=== PATIENT | male | born 1975 | race Caucasian/White ===

== ENCOUNTER 2016-12-30 06:53 | Emergency (ER) | payer SELFPAY ==
[2016-12-30 07:02] VITALS: BP 104/80; BMI 19.2
--- NOTE | 2016-12-30 07:08 | DR.GENAD ---
HPI - PCP Primary Care Physician: Jeremy - HPI Comment HPI Comment: WISH TO GO TO REHAB. - Complaint/Symptoms Chief Complaint Doctors Comments: ALCHOL DEPENDENCY Chief Complaint:: "I need help to quit drinking. I went to [place] last night for help and they said that my alcohol level had to be higher. So then I went out and bought a 5th so that my levels would be higher. I am withdrawing now and need help." - Nurses notes reviewed Nurses Notes Review: Yes - Source History Provided: Patient - Mode of Arrival Mode of Arrival: Ambulatory - Timing Onset of Chief Complaint: 12/30/16 Came on: Suddenly - Duration Duration: Constant Duration: Days - Severity Severity: Moderate <DOUGLAS PINEDA - Last Filed: 01/03/17 11:48> PMH - PMH Past Medical History: Yes Past Medical History: Anxiety, Kidney Stones, PUD Past Surgical History: Yes Surgical History: Ortho Surgery Past Surgical History Comment: Shoulder surgery - Family History History of Family Medical Conditions: Yes Family Medical History: Diabetes Mellitus, [place], Coronary Artery Disease, Heart Failure, Hypertension - Social History Does patient currently use any type of tobacco product: Yes Have you used tobacco products in the last 12 months: Yes Type of Tobacco Use: Cigarettes Does any household member use tobacco: Yes Alcohol Use: Heavy Do you use any recreational Drugs:: No Lives With: Spouse Lives Where: Home - infectious screening In the last 2 months have you had wt loss of >10#?: NO Have you had fever, night sweats or hemotysis?: No Have you traveled outside the country in the last 6 months?: No Isolation: Standard <DOUGLAS PINEDA - Last Filed: 01/03/17 11:48> ROS - Review of Systems Constitutional: No Symptoms Reported Eyes: No Symptoms Reported ENTM: No Symptoms Reported Respiratoy: No Symptoms Reported Cardiovascular: No Symptoms Reported Gastrointestinal/Abdominal: No Symptoms Reported Genitourinary: No Symptoms Reported Neurological: No Symptoms Reported Musculoskeletal: No Symptoms Reported Integumentary: No Symptoms Reported Endocrine: No Symptoms Reported All Other Systems: Reviewed and Negative <DOUGLAS PINEDA - Last Filed: 01/03/17 11:48> PE - General Limitations: No Limitations General Appearance: Alert - Head Head Exam: Normal Inspection - Eyes Eye exam: Normal Appearance - ENT ENT Exam: Normal External Ear Exam External Ear Exam: Normal External Inspection TM/Canal Exam: Bilateral Normal Nose Exam: Normal Nose Exam Mouth Exam: Normal Inspection Throat Exam: Normal Inspection - Neck Neck Exam: Normal Inspection - Chest Chest Inspection: Symmetric Chest Wall Rise - Respiratory Respiratory Exam: Normal Lung Sounds Bilat Respiratory Exam: Bilateral Clear to Auscultation - Cardiovascular Cardiovascular Exam: Regular Rate, Normal Rhythm, Normal Heart Sounds - Abdominal Exam Abdominal Exam: Normal Bowel Sounds, Soft. negative: Tenderness - Extremities Extremities Exam: Normal Inspection - Back Back Exam: Normal Inspection - Neurologic Neurological Exam: Alert, Oriented X3, CN II-XII Intact - Psychiatric Psychiatric Exam: Normal Affect, Normal Mood - Skin Skin Exam: Normal Color <DOUGLAS PINEDA - Last Filed: 01/03/17 11:48> - Vital Signs Vitals: Temperature 97.7 F Pulse Rate 97 Respiratory Rate 18 Blood Pressure 104/80 O2 Sat by Pulse Oximetry 95 MDM - Differential Diagnosis Differential Diagnosis: ALCOHOL DEPENDENCY, REHAB REQUEST <DOUGLAS PINEDA - Last Filed: 01/03/17 11:48> Course - Treatment Treatment: Patient states that he is going to stop drinking alcohol. He will be following up with Dr Alston for treatment. He was seen by Dr Alston in the past be relasped.He reporots that he comes a long hisotry of alcohol abuse in his family and is determined to stop. Will give him a librium, thiamine and B complex pending his appointment with Dr Alston - Reevaluation 1st: Improved <SIRI ZURITA - Last Filed: 12/30/16 08:55> ROR - Labs Reviewed Laboratory Results Reviewed?: Yes (Alcohol 115mg/dl, THC) Result Diagrams: 12/30/16 07:20 12/30/16 07:20 <SIRI ZURITA - Last Filed: 12/30/16 08:55> - Labs Reviewed Result Diagrams: 12/30/16 07:20 12/30/16 07:20 <DOUGLAS PINEDA - Last Filed: 01/03/17 11:48> - Labs Reviewed Laboratory: 12/30/16 07:27 Urine,Clean Catch Urine Culture - Final WBC 9.3 X10^3/uL (3.6-10.0) 12/30/16 07:20 RBC 4.22 X10^6/uL (4.7-6.0) L 12/30/16 07:20 Hgb 13.8 g/dL (13.5-18.0) 12/30/16 07:20 Hct 40.0 % (42.0-54.0) L 12/30/16 07:20 MCV 94.9 fL (80.0-100.0) 12/30/16 07:20 MCH 32.6 pg (27.0-34.0) 12/30/16 07:20 MCHC 34.4 g/dL (33.0-35.0) 12/30/16 07:20 RDW 15.1 % (11.6-16.5) 12/30/16 07:20 Plt Count 223 X10^3/uL (150.0-450.0) 12/30/16 07:20 MPV 6.9 fL (7.4-11.0) L 12/30/16 07:20 Neut % 73.4 % (42.0-75.0) 12/30/16 07:20 Lymph % 18.1 % (21.0-51.0) L 12/30/16 07:20 [place] % 6.6 % (0.0-13.0) 12/30/16 07:20 Eos % 1.1 % (0.9-2.9) 12/30/16 07:20 Baso % 0.8 % (0.2-1.0) 12/30/16 07:20 Neut # 6.8 x10^3/uL (2.2-4.8) H 12/30/16 07:20 Lymph # 1.7 X10^3/uL (1.3-2.9) 12/30/16 07:20 [place] # 0.6 x10^3/uL (0.3-0.8) 12/30/16 07:20 Eos # 0.1 x10^3/uL (0.0-0.2) 12/30/16 07:20 Baso # 0.1 X10^3/uL (0.0-0.1) 12/30/16 07:20 Absolute Nucleated RBC 0.1 /100WBC 12/30/16 07:20 Sodium 142 mmol/L (136-145) 12/30/16 07:20 Corrected Sodium 142 mmol/L (136-145) 12/30/16 07:20 Potassium 3.5 mmol/L (3.5-5.1) 12/30/16 07:20 Chloride 108 mmol/L (98-107) H 12/30/16 07:20 Carbon Dioxide 23.8 mmol/L (21-32) 12/30/16 07:20 BUN 8 mg/dL (7-18) 12/30/16 07:20 Creatinine 1.12 mg/dL (0.70-1.30) 12/30/16 07:20 Est GFR (MDRD) Af Amer > 60 (>60) 12/30/16 07:20 Est GFR (MDRD) Non-Af > 60 (>60) 12/30/16 07:20 Glucose 112 mg/dL (65-99) H 12/30/16 07:20 Calcium 8.7 mg/dL (8.5-10.1) 12/30/16 07:20 Corrected Calcium TNP 12/30/16 07:20 Total Bilirubin 0.90 mg/dL (0.2-1.0) 12/30/16 07:20 AST 32 Units/L (15-37) 12/30/16 07:20 ALT 24 Units/L (12-78) 12/30/16 07:20 Alkaline Phosphatase 115 Units/L (46-116) 12/30/16 07:20 Total Protein 7.5 g/dL (6.4-8.2) 12/30/16 07:20 Albumin 3.4 g/dL (3.4-5.0) 12/30/16 07:20 Globulin 4.1 g/dL (2.5-4.5) 12/30/16 07:20 Albumin/Globulin Ratio 0.8 Ratio (1.1-2.1) L 12/30/16 07:20 Specimen Type Clean catch urine 12/30/16 07:27 Urine Color Yellow (YELLOW) 12/30/16 07:27 Urine Appearance Hazy (CLEAR) 12/30/16 07:27 Urine pH 5.0 (5.0 - 8.0) 12/30/16 07:27 Ur Specific [place] 1.030 (1.000-1.030) 12/30/16 07:27 Urine Protein 2+ (NEGATIVE) 12/30/16 07:27 Urine Glucose (UA) Negative (NEGATIVE) 12/30/16 07:27 Urine Ketones Negative (NEGATIVE) 12/30/16 07:27 Urine Occult Blood 1+ (NEGATIVE) 12/30/16 07:27 Urine Nitrite Negative (NEGATIVE) 12/30/16 07:27 Urine Bilirubin Negative (NEGATIVE) 12/30/16 07:27 Urine Urobilinogen 1+ (NORMAL) 12/30/16 07:27 Ur Leukocyte Esterase Negative (NEGATIVE) 12/30/16 07:27 Urine RBC 0-3 /HPF (NEGATIVE) 12/30/16 07:27 Urine WBC 0-3 /HPF (NEGATIVE) 12/30/16 07:27 Ur Squamous Epith Cells Few /HPF (NEGATIVE) 12/30/16 07:27 Urine Bacteria 1+ /HPF (NEGATIVE) 12/30/16 07:27 Ur Culture Indicated? Yes/culture set up 12/30/16 07:27 Salicylates < 2.8 mg/dL (2.8-20) L 12/30/16 07:20 Urine Opiates Screen Negative (NEG=<300) 12/30/16 07:23 Urine Methadone Screen Negative (NEG=<300) 12/30/16 07:23 Acetaminophen 0.0 ug/mL (10-30) L 12/30/16 07:20 Ur Barbiturates Screen Negative (NEG=<200) 12/30/16 07:23 Ur Phencyclidine Scrn Negative (NEG=<25) 12/30/16 07:23 Ur Amphetamines Screen Negative (NEG=<1000) 12/30/16 07:23 U Benzodiazepines Scrn Negative (NEG=<200) 12/30/16 07:23 Urine Cocaine Screen Negative (NEG=<300) 12/30/16 07:23 U Marijuana (THC) Screen Positive (NEG=<50) A 12/30/16 07:23 Ethyl Alcohol mg/dL 115 mg/dL (0-19.9) H 12/30/16 07:20 <SIRI ZURITA - Last Filed: 12/30/16 08:55> <DOUGLAS PINEDA - Last Filed: 01/03/17 11:48> - Diagnosis Discharge Problem: Alcohol use disorder - Discharge Plan Disposition: 01 HOME, SELF-CARE Condition: Stable Prescriptions: B-Complex with Vitamin C [B-Complex Plus Vitamin C] 1 each PO DAILY #30 tablet Chlordiazepoxide HCl [LIBRIUM CAP 25 MG *] 25 mg PO BID #16 cap Thiamine HCl [B-1] 100 mg PO DAILY #30 tablet - Follow ups/Referrals Follow ups/Referrals: MATTHEW ALSTON [Primary Care Provider] - 3 days - Instructions Instructions: Alcohol Use Disorder
[2016-12-30] MEDS ORDERED: NS 1000 ML 1,000 ML ONE (07:27)
[2016-12-30 07:29] LABS: BASOPHILS # (AUTO) 0.1 X10^3/uL (0.0-0.1); BASOPHILS % (AUTO) 0.8 % (0.2-1.0); EOSINOPHILS # (AUTO) 0.1 x10^3/uL (0.0-0.2); EOSINOPHILS % (AUTO) 1.1 % (0.9-2.9); HEMOGLOBIN 13.8 g/dL (13.5-18.0); LYMPHOCYTES # (AUTO) 1.7 X10^3/uL (1.3-2.9); LYMPHOCYTES % (AUTO) 18.1 % (21.0-51.0); MEAN CORPUSCULAR HEMOGLOBIN 32.6 pg (27.0-34.0); MEAN CORPUSCULAR HGB CONC 34.4 g/dL (33.0-35.0); MEAN CORPUSCULAR VOLUME 94.9 fL (80.0-100.0); MEAN PLATELET VOLUME 6.9 fL (7.4-11.0); MONOCYTES # (AUTO) 0.6 x10^3/uL (0.3-0.8); MONOCYTES % (AUTO) 6.6 % (0.0-13.0); NEUTROPHILS # (AUTO) 6.8 x10^3/uL (2.2-4.8); NEUTROPHILS % (AUTO) 73.4 % (42.0-75.0); PLATELET COUNT 223 X10^3/uL (150.0-450.0); RED BLOOD COUNT 4.22 X10^6/uL (4.7-6.0); RED CELL DISTRIBUTION WIDTH 15.1 % (11.6-16.5); WHITE BLOOD COUNT 9.3 X10^3/uL (3.6-10.0)
[2016-12-30] MEDS ORDERED: NS 1000 ML 1,000 ML IV ONE (07:35)
[2016-12-30 07:41] LABS: BILIRUBIN,URINE NEGATIVE (NEGATIVE); BLOOD/HEMOGLOBIN,URINE 1+ (NEGATIVE); GLUCOSE, URINE NEGATIVE (NEGATIVE); KETONES,URINE NEGATIVE (NEGATIVE); LEUKOCYTE ESTERASE ,URINE NEGATIVE (NEGATIVE); NITRITES,URINE NEGATIVE (NEGATIVE); PROTEIN,URINE 2+ (NEGATIVE); UROBILINOGEN,URINE 1+ (NORMAL)
[2016-12-30 07:42] LABS: ALANINE AMINOTRANSFERASE 24 Units/L (12-78); ALBUMIN 3.4 g/dL (3.4-5.0); ALKALINE PHOSPHATASE 115 Units/L (46-116); ASPARTATE AMINO TRANSFERASE 32 Units/L (15-37); BLOOD ALCOHOL 115 mg/dL (0-19.9); BLOOD UREA NITROGEN 8 mg/dL (7-18); CALCIUM 8.7 mg/dL (8.5-10.1); CARBON DIOXIDE 23.8 mmol/L (21-32); CHLORIDE 108 mmol/L (98-107); COR NA(FOR HYPERGLY) 142 mmol/L (136-145); CREATININE 1.12 mg/dL (0.70-1.30); SODIUM 142 mmol/L (136-145); TOTAL PROTEIN 7.5 g/dL (6.4-8.2); eGFR BLACK RACES > 60 (>60); eGFR NON BLACK RACES > 60 (>60)
[2016-12-30 07:43] LABS: SALICYLATE < 2.8 mg/dL (2.8-20)
[2016-12-30 07:50] LABS: APPEARANCE,URINE HAZY (CLEAR); BACTERIA,URINE 1+ /HPF (NEGATIVE); COLOR,URINE YELLOW (YELLOW); RBC,URINE 0-3 /HPF (NEGATIVE); SQUAMOUS EPITHELIAL CELL,UR FEW /HPF (NEGATIVE)
== END 2016-12-30 09:03 | disposition home or self-care (01) ==
LOC: ER 06:53
DX: F10.988 Alcohol use, unspecified with other alcohol-induced disorder (principal)
CPT/HCPCS: 36415; 80053; 80307; 80320; 81001; 85025; 87086; 93005; 93010; 96365; 99283; A4222; G0434; G6038; G6039; G6040

== ENCOUNTER 2017-03-11 16:37 | Emergency (ER) | payer OTHER ==
[2017-03-11 16:54] VITALS: BP 135/97; BMI 17.7
--- NOTE | 2017-03-11 17:59 | DR.GENAD ---
HPI - PCP Primary Care Physician: alston - Complaint/Symptoms Chief Complaint Doctors Comments: Patient admits to being an alcoholic for years and has been trying to quit drinking. He states that he drinks daily. He needs to see a psychiatrist to see a psychiatrist to help him quit according to him. He was given libirum 01/03/17 until he could see his physician but has not stopped drinking. Chief Complaint:: pt has been drinking again and needs librium to help so he dont have seizures. and he is going to a shrink for his problems. - Source History Provided: Patient - Mode of Arrival Mode of Arrival: Ambulatory - Timing Onset of Chief Complaint: 03/11/17 PMH - PMH Past Medical History: Yes Past Medical History: Anxiety, Kidney Stones, PUD Past Surgical History: Yes Surgical History: Ortho Surgery - Family History History of Family Medical Conditions: Yes Family Medical History: Diabetes Mellitus, [place], Coronary Artery Disease, Heart Failure, Hypertension - Social History Does patient currently use any type of tobacco product: Yes Have you used tobacco products in the last 12 months: Yes Type of Tobacco Use: Cigarettes How many years tobacco product used: 15 Does any household member use tobacco: No Alcohol Use: None Do you use any recreational Drugs:: No Lives With: Family Lives Where: Home - infectious screening In the last 2 months have you had wt loss of >10#?: NO Have you had fever, night sweats or hemotysis?: No Have you traveled outside the country in the last 6 months?: No Isolation: Standard ROS - Review of Systems Eyes: No Symptoms Reported ENTM: No Symptoms Reported Respiratoy: No Symptoms Reported Cardiovascular: No Symptoms Reported Gastrointestinal/Abdominal: No Symptoms Reported Genitourinary: No Symptoms Reported Neurological: No Symptoms Reported Musculoskeletal: No Symptoms Reported Integumentary: No Symptoms Reported Hematologic/Lymphatic: No Symptoms Reported Endocrine: No Symptoms Reported Psychiatric: No Symptoms Reported All Other Systems: Reviewed and Negative PE - Vital Signs Vitals: Temperature 98.9 F Pulse Rate 99 Respiratory Rate 18 Blood Pressure 135/97 O2 Sat by Pulse Oximetry 97 - General Limitations: No Limitations General Appearance: Alert, Anxious - Head Head Exam: Normal Inspection, Atraumatic - Eyes Eye exam: Normal Appearance, PERRL, EOMI - ENT ENT Exam: Normal Exam External Ear Exam: Normal External Inspection TM/Canal Exam: Bilateral Normal Nose Exam: Normal Nose Exam Mouth Exam: Normal Inspection Throat Exam: Normal Inspection - Neck Neck Exam: Normal Inspection, Full ROM - Chest Chest Inspection: Normal Inspection - Respiratory Respiratory Exam: Normal Lung Sounds Bilat Respiratory Exam: Bilateral Clear to Auscultation - Cardiovascular Cardiovascular Exam: Regular Rate, Normal Rhythm - Abdominal Exam Abdominal Exam: Normal Inspection, Normal Bowel Sounds Abdominal Tenderness: negative: RUQ, RLQ, LUQ, LLQ, Epigastrium, Suprapubic, Diffuse, Mild, Moderate, Severe, Other - Extremities Extremities Exam: Normal Inspection, Full ROM - Back Back Exam: Normal Inspection, Full ROM - Neurologic Neurological Exam: Alert, Oriented X3, CN II-XII Intact - Psychiatric Psychiatric Exam: Normal Affect, Normal Mood - Skin Skin Exam: Warm, Dry, Intact - Diagnosis Discharge Problem: Alcoholic - Discharge Plan Condition: Stable - Follow ups/Referrals Follow ups/Referrals: MATTHEW ALSTON [Primary Care Provider] - 3 days - Instructions
== END 2017-03-11 18:13 | disposition home or self-care (01) ==
LOC: ER 17:05
DX: F10.120 Alcohol abuse with intoxication, uncomplicated (principal)
CPT/HCPCS: 99281; 99282

== ENCOUNTER 2017-08-14 15:39 | Emergency (ER) | payer SELFPAY ==
[2017-08-14 15:44] VITALS: BP 146/109; BMI 17.7
--- NOTE | 2017-08-14 16:31 | DR.GENAD ---
HPI - PCP Primary Care Physician: oscar - Complaint/Symptoms Chief Complaint:: pt stated he needs help from alcohol again. he stated he needs libirum and the yellow liquid in his iv. - Nurses notes reviewed Nurses Notes Review: Yes - Source History Provided: Patient - Mode of Arrival Mode of Arrival: Ambulatory - Timing Onset of Chief Complaint: 08/13/17 Came on: Suddenly - Duration Duration: Constant Duration: Days - Severity Severity: Moderate PMH - PMH Past Medical History: Yes Past Medical History: Anxiety, Kidney Stones, PUD Past Surgical History: Yes Surgical History: Ortho Surgery - Family History History of Family Medical Conditions: Yes Family Medical History: Diabetes Mellitus, [place], Coronary Artery Disease, Heart Failure, Hypertension - Social History Does patient currently use any type of tobacco product: Yes Have you used tobacco products in the last 12 months: Yes Type of Tobacco Use: Cigarettes How many years tobacco product used: 20 Does any household member use tobacco: No Alcohol Use: Heavy Do you use any recreational Drugs:: No Lives With: Family Lives Where: Home - infectious screening In the last 2 months have you had wt loss of >10#?: NO Have you had fever, night sweats or hemotysis?: No Have you traveled outside the country in the last 6 months?: No Isolation: Standard PE - Vital Signs Vitals: Temperature 98.6 F Pulse Rate 108 Respiratory Rate 16 Blood Pressure 146/109 O2 Sat by Pulse Oximetry 100 - Discharge Plan Condition: Stable - Follow ups/Referrals Follow ups/Referrals: MATTHEW ALSTON [Primary Care Provider] - 3 days - Instructions
== END 2017-08-14 17:02 | disposition left against medical advice (07) ==
LOC: ER 15:39
DX: F10.239 Alcohol dependence with withdrawal, unspecified (principal)
CPT/HCPCS: 99281

== ENCOUNTER 2020-09-09 18:55 | Observation (INO) ==
[2020-09-09 19:13] VITALS: BMI 19.0
--- NOTE | 2020-09-09 21:29 | DR.GENAD ---
HPI Time Seen Time Seen by Provider: 09/09/20 21:17 PCP Primary Care Physician: oscar HPI Comment HPI Comment: Patient with h/o liver disease and ascites presents requesting paracentesis. Denies any AMS, seizure, fever, n/v, shortness of breath. Has not had follow up with GI or with PCP. Complaint/Symptoms Chief Complaint:: PT STATES" I NEED THE FLUID DRAWED OFF MY STOMACH. I WENT TO [facility] TODAY BUT THEY COULDN'T DO IT. I CAME HERE SO YOU CAN TRANSFER ME SOMEWHERE TO GET IT DONE. I DON'T HAVE NO CAR" PT HAS SWELLING NOTED TO ABD WITH MULTIPLE SORES OVER ENTIRE ABD AND ARMS PT IS JAUNDICE COVID-19 Coronavirus risk:travel/contact w/high risk person: No Has patient experienced Coronavirus symptoms: No Source History Provided: Patient Mode of Arrival Mode of Arrival: Ambulatory Timing Onset of Chief Complaint: 09/07/20 PMH PMH Past Medical History: Yes Past Medical History: Anxiety, Kidney Stones, Liver Disease and PUD Past Surgical History: Yes Surgical History: Ortho Surgery Family History History of Family Medical Conditions: Yes Family Medical History: Diabetes Mellitus and Hypertension Social History Do you use any recreational Drugs:: No Lives Where: Home Travel Risk Coronavirus risk:travel/contact w/high risk person: No Has patient experienced Coronavirus symptoms: No Infectious screening In the last 2 months have you had wt loss of >10#?: NO Have you had fever, night sweats or hemotysis?: No Have you traveled outside the country in the last 6 months?: No Isolation: Standard ROS Review of Systems Constitutional: See HPI PE Vital Signs Vitals: Temperature 98.2 F Pulse Rate 98 Respiratory Rate 18 Blood Pressure [Left Arm] 122/88 Blood Pressure 125/79 O2 Sat by Pulse Oximetry 97 COURSE Treatment Treatment: unremarkable ED course Reevaluation 1st: Unchanged Consultation Called: 22:23 Consultation Comments: Spoke with Dr. Chau who accepts patient for admission. Dr. Hou will be consulted in the AM for paracentesis ROR Labs Reviewed Laboratory Results Reviewed?: Yes Result Diagrams: 09/09/20 21:34 09/09/20 21:34 Laboratory: WBC 14.5 X10^3/uL (3.6-10.0) H 09/09/20 21:34 RBC 2.55 X10^6/uL (4.7-6.0) L 09/09/20 21:34 Hgb 9.8 g/dL (13.5-18.0) L 09/09/20 21:34 Hct 28.3 % (42.0-54.0) L 09/09/20 21:34 MCV 111.1 fL (80.0-100.0) H 09/09/20 21:34 MCH 38.3 pg (27.0-34.0) H 09/09/20 21:34 MCHC 34.5 g/dL (33.0-35.0) 09/09/20 21:34 RDW 13.6 % (11.6-16.5) 09/09/20 21:34 Plt Count 299 X10^3/uL (150.0-450.0) 09/09/20 21:34 Plt Count Comment Adequate (ADEQUATE) 09/09/20 21:34 MPV 7.6 fL (7.4-11.0) 09/09/20 21:34 Neut % (Auto) 77.2 % (42.0-75.0) H 09/09/20 21:34 Lymph % (Auto) 10.3 % (21.0-51.0) L 09/09/20 21:34 [place] % (Auto) 10.6 % (0.0-13.0) 09/09/20 21:34 Eos % (Auto) 1.0 % (0.9-2.9) 09/09/20 21:34 Baso % (Auto) 0.9 % (0.2-1.0) 09/09/20 21:34 Neut # (Auto) 11.2 x10^3/uL (2.2-4.8) H 09/09/20 21:34 Lymph # (Auto) 1.5 X10^3/uL (1.3-2.9) 09/09/20 21:34 [place] # (Auto) 1.5 x10^3/uL (0.3-0.8) H 09/09/20 21:34 Eos # (Auto) 0.1 x10^3/uL (0.0-0.2) 09/09/20 21:34 Baso # (Auto) 0.1 X10^3/uL (0.0-0.1) 09/09/20 21:34 Absolute Nucleated RBC 0.0 /100WBC 09/09/20 21:34 Plt Morphology Comment Normal (NORMAL) 09/09/20 21:34 RBC Morphology Abnormal (NORMAL) 09/09/20 21:34 Anisocytosis Slight A 09/09/20 21:34 Macrocytosis 2+ A 09/09/20 21:34 Sodium 130 mmol/L (136-145) L 09/09/20 21:34 Corrected Sodium TNP 09/09/20 21:34 Potassium 3.8 mmol/L (3.5-5.1) 09/09/20 21:34 Chloride 97 mmol/L (98-107) L 09/09/20 21:34 Carbon Dioxide 25.4 mmol/L (21-32) 09/09/20 21:34 BUN 12 mg/dL (7-18) 09/09/20 21:34 Creatinine 1.14 mg/dL (0.70-1.30) 09/09/20 21:34 Est GFR (MDRD) Af Amer > 60 (>60) 09/09/20 21:34 Est GFR (MDRD) Non-Af > 60 (>60) 09/09/20 21:34 Glucose 109 mg/dL (65-99) H 09/09/20 21:34 Calcium 8.0 mg/dL (8.5-10.1) L 09/09/20 21:34 Corrected Calcium 9.8 mg/dL (8.5-10.1) 09/09/20 21:34 Total Bilirubin 3.90 mg/dL (0.2-1.0) H 09/09/20 21:34 AST 317 Units/L (15-37) H 09/09/20 21:34 ALT 84 Units/L (12-78) H 09/09/20 21:34 Alkaline Phosphatase 298 Units/L (46-116) H 09/09/20 21:34 Total Protein 8.1 g/dL (6.4-8.2) 09/09/20 21:34 Albumin 1.7 g/dL (3.4-5.0) L 09/09/20 21:34 Globulin 6.4 g/dL (2.5-4.5) H 09/09/20 21:34 Albumin/Globulin Ratio 0.3 Ratio (1.1-2.1) L 09/09/20 21:34 Opioid Opioid Risk Tool Age (Macho box if 16-45): Yes History of Preadolescent Sexual Abuse: No Total: 1 Total Score Risk Category: Low Risk Copyright: Damien WOLFE predicting aberrant behaviors Diagnosis Discharge Problem: Cirrhosis Qualifiers: Hepatic cirrhosis type: other cirrhosis Qualified Code(s): K74.69 - Other cirrhosis of liver Ascites Qualifiers: Ascites type: other type Qualified Code(s): R18.8 - Other ascites
[2020-09-09 21:42] LABS: BASOPHILS # (AUTO) 0.1 X10^3/uL (0.0-0.1); BASOPHILS % (AUTO) 0.9 % (0.2-1.0); EOSINOPHILS # (AUTO) 0.1 x10^3/uL (0.0-0.2); HEMATOCRIT 28.3 % (42.0-54.0); HEMOGLOBIN 9.8 g/dL (13.5-18.0); LYMPHOCYTES # (AUTO) 1.5 X10^3/uL (1.3-2.9); LYMPHOCYTES % (AUTO) 10.3 % (21.0-51.0); MEAN CORPUSCULAR HEMOGLOBIN 38.3 pg (27.0-34.0); MEAN CORPUSCULAR HGB CONC 34.5 g/dL (33.0-35.0); MEAN CORPUSCULAR VOLUME 111.1 fL (80.0-100.0); MEAN PLATELET VOLUME 7.6 fL (7.4-11.0); MONOCYTES # (AUTO) 1.5 x10^3/uL (0.3-0.8); MONOCYTES % (AUTO) 10.6 % (0.0-13.0); NEUTROPHILS # (AUTO) 11.2 x10^3/uL (2.2-4.8); NEUTROPHILS % (AUTO) 77.2 % (42.0-75.0); PLATELET COUNT 299 X10^3/uL (150.0-450.0); RED BLOOD COUNT 2.55 X10^6/uL (4.7-6.0); RED CELL DISTRIBUTION WIDTH 13.6 % (11.6-16.5); WHITE BLOOD COUNT 14.5 X10^3/uL (3.6-10.0)
[2020-09-09 21:50] LABS: ALANINE AMINOTRANSFERASE 84 Units/L (12-78); ALBUMIN 1.7 g/dL (3.4-5.0); ALKALINE PHOSPHATASE 298 Units/L (46-116); ASPARTATE AMINO TRANSFERASE 317 Units/L (15-37); BLOOD UREA NITROGEN 12 mg/dL (7-18); CARBON DIOXIDE 25.4 mmol/L (21-32); CHLORIDE 97 mmol/L (98-107); COR CA(FOR HYPOALB) 9.8 mg/dL (8.5-10.1); CREATININE 1.14 mg/dL (0.70-1.30); SODIUM 130 mmol/L (136-145); TOTAL PROTEIN 8.1 g/dL (6.4-8.2); eGFR NON BLACK RACES > 60 (>60)
[2020-09-09 21:57] LABS: ANISOCYTOSIS SLIGHT; PLATELET MORPHOLOGY COMMENT NORMAL (NORMAL)
[2020-09-09] MEDS ORDERED: NORCO 5/325 MG TAB ONE (23:14)
[2020-09-09] MEDS: NORCO 5/325 MG TAB PO PRN (23:15)
[2020-09-10] MEDS: AMBIEN PO PRN ×2 (00:16→22:14)
[2020-09-10 05:31] LABS: BASOPHILS # (AUTO) 0.1 X10^3/uL (0.0-0.1); BASOPHILS % (AUTO) 1.2 % (0.2-1.0); EOSINOPHILS # (AUTO) 0.2 x10^3/uL (0.0-0.2); EOSINOPHILS % (AUTO) 1.9 % (0.9-2.9); HEMATOCRIT 27.9 % (42.0-54.0); LYMPHOCYTES # (AUTO) 1.1 X10^3/uL (1.3-2.9); LYMPHOCYTES % (AUTO) 10.5 % (21.0-51.0); MEAN CORPUSCULAR HEMOGLOBIN 39.6 pg (27.0-34.0); MEAN CORPUSCULAR HGB CONC 35.8 g/dL (33.0-35.0); MEAN CORPUSCULAR VOLUME 110.6 fL (80.0-100.0); MEAN PLATELET VOLUME 8.1 fL (7.4-11.0); MONOCYTES # (AUTO) 1.2 x10^3/uL (0.3-0.8); MONOCYTES % (AUTO) 11.1 % (0.0-13.0); NEUTROPHILS % (AUTO) 75.3 % (42.0-75.0); PLATELET COUNT 270 X10^3/uL (150.0-450.0); RED BLOOD COUNT 2.53 X10^6/uL (4.7-6.0); RED CELL DISTRIBUTION WIDTH 13.7 % (11.6-16.5); WHITE BLOOD COUNT 10.7 X10^3/uL (3.6-10.0)
[2020-09-10 05:39] LABS: ALANINE AMINOTRANSFERASE 84 Units/L (12-78); ALBUMIN 1.6 g/dL (3.4-5.0); ALKALINE PHOSPHATASE 285 Units/L (46-116); ASPARTATE AMINO TRANSFERASE 320 Units/L (15-37); BLOOD UREA NITROGEN 11 mg/dL (7-18); CALCIUM 8.3 mg/dL (8.5-10.1); CARBON DIOXIDE 27.3 mmol/L (21-32); CHLORIDE 99 mmol/L (98-107); COR CA(FOR HYPOALB) 10.2 mg/dL (8.5-10.1); CREATININE 1.08 mg/dL (0.70-1.30); SODIUM 132 mmol/L (136-145); TOTAL PROTEIN 7.7 g/dL (6.4-8.2); eGFR NON BLACK RACES > 60 (>60)
[2020-09-10 05:58] LABS: PLATELET MORPHOLOGY COMMENT NORMAL (NORMAL)
[2020-09-10] MEDS ORDERED: ATIVAN INJ 2 MG VIAL IVP ONE (08:41)
[2020-09-10] MEDS ORDERED: ATIVAN INJ 2 MG VIAL ONE (08:43)
[2020-09-10] MEDS: NORCO 5/325 MG TAB PO PRN (14:19)
[2020-09-10] MEDS: PERCOCET TAB 5/325 MG PO PRN ×2 (18:19→22:13)
[2020-09-11] MEDS: PERCOCET TAB 5/325 MG PO PRN ×2 (05:40→09:25)
[2020-09-11 05:58] LABS: AMMONIA 26 umol/L (11-32)
[2020-09-11 06:12] LABS: BASOPHILS # (AUTO) 0.1 X10^3/uL (0.0-0.1); BASOPHILS % (AUTO) 0.7 % (0.2-1.0); EOSINOPHILS # (AUTO) 0.2 x10^3/uL (0.0-0.2); EOSINOPHILS % (AUTO) 1.5 % (0.9-2.9); HEMATOCRIT 31.2 % (42.0-54.0); HEMOGLOBIN 10.7 g/dL (13.5-18.0); LYMPHOCYTES # (AUTO) 1.4 X10^3/uL (1.3-2.9); LYMPHOCYTES % (AUTO) 10.2 % (21.0-51.0); MEAN CORPUSCULAR HEMOGLOBIN 38.7 pg (27.0-34.0); MEAN CORPUSCULAR HGB CONC 34.4 g/dL (33.0-35.0); MEAN CORPUSCULAR VOLUME 112.4 fL (80.0-100.0); MONOCYTES # (AUTO) 1.3 x10^3/uL (0.3-0.8); MONOCYTES % (AUTO) 9.5 % (0.0-13.0); NEUTROPHILS # (AUTO) 10.5 x10^3/uL (2.2-4.8); NEUTROPHILS % (AUTO) 78.1 % (42.0-75.0); PLATELET COUNT 311 X10^3/uL (150.0-450.0); RED BLOOD COUNT 2.78 X10^6/uL (4.7-6.0); RED CELL DISTRIBUTION WIDTH 13.8 % (11.6-16.5); WHITE BLOOD COUNT 13.5 X10^3/uL (3.6-10.0)
[2020-09-11 06:38] LABS: PLATELET MORPHOLOGY COMMENT NORMAL (NORMAL)
[2020-09-11 06:47] LABS: ALANINE AMINOTRANSFERASE 85 Units/L (12-78); ALBUMIN 1.6 g/dL (3.4-5.0); ALKALINE PHOSPHATASE 296 Units/L (46-116); ASPARTATE AMINO TRANSFERASE 294 Units/L (15-37); BLOOD UREA NITROGEN 14 mg/dL (7-18); CALCIUM 8.1 mg/dL (8.5-10.1); CARBON DIOXIDE 27.8 mmol/L (21-32); CHLORIDE 99 mmol/L (98-107); CREATININE 1.21 mg/dL (0.70-1.30); MAGNESIUM 1.6 mg/dL (1.7-2.9); SODIUM 132 mmol/L (136-145); eGFR NON BLACK RACES > 60 (>60)
[2020-09-11] MEDS ORDERED: ALDACTONE TAB 25 MG PO SCH (11:00)
[2020-09-11 12:03] VITALS: BP 119/74
[2020-09-12] MEDS ORDERED: LASIX PO SCH (09:00)
[2020-09-15 06:08] LABS: ZINC PLASMA 44.9 ug/dL (60.0-120.0)
== END 2020-09-11 11:50 | disposition home or self-care (01) ==
LOC: ER 19:00 → OBS 19:00 → MED/SURG 09-10 14:00
PROVIDERS: ADMIT Internal Medicine; ATTEND Obstetrics & Gynecology Obstetrics
DX: R79.89 Other specified abnormal findings of blood chemistry; R73.09 Other abnormal glucose; Z20.822 Contact with and (suspected) exposure to COVID-19; E87.6 Hypokalemia; K70.31 Alcoholic cirrhosis of liver with ascites